=== PATIENT | male | born 1960 | race Caucasian/White ===

== ENCOUNTER 2023-07-04 12:29 | Outpatient (CLI) | payer BC, SELFPAY | END 2023-07-04 12:30 | disposition home or self-care (01) | LOC: LKVREF 12:30 | PROVIDERS: Visit Provider Nurse Practitioner Family | DX: M25.572 Pain in left ankle and joints of left foot (principal); M76.60 Achilles tendinitis, unspecified leg | CPT/HCPCS: 84550 ==